=== PATIENT | female | born 1945 | race Hispanic/Latino ===

== ENCOUNTER → 2018-06-26 | Outpatient (CLI) | payer OTHER, MEDICARE ==
[~2018-06-26] MED LIST: ASPI-555 PO; FISH1CAP49 PO; SIMV40TA5 PO
== END | disposition home or self-care (01) ==
LOC: SLP 16:52
PROVIDERS: ATTEND Family Medicine
DX: E66.01 Morbid (severe) obesity due to excess calories (principal); G47.30 Sleep apnea, unspecified
CPT/HCPCS: 95810

== ENCOUNTER → 2018-07-02 | Outpatient (CLI) | payer OTHER, MEDICARE | END | disposition home or self-care (01) | LOC: SLP 20:21 | PROVIDERS: ATTEND Family Medicine | DX: G47.33 Obstructive sleep apnea (adult) (pediatric) (principal); R06.83 Snoring | CPT/HCPCS: 95811 ==

== ENCOUNTER → 2019-09-28 | Outpatient (CLI) | payer OTHER, MEDICARE ==
[~2019-09-28] MED LIST changes: +SIMV-46 PO; -SIMV40TA5 PO
== END | disposition home or self-care (01) ==
LOC: RAH 10:14
PROVIDERS: ATTEND Family Medicine
DX: Z12.31 Encounter for screening mammogram for malignant neoplasm of breast (principal)
CPT/HCPCS: 77067

== ENCOUNTER → 2020-11-04 | Outpatient (CLI) | payer OTHER, MEDICARE ==
[~2020-11-04] MED LIST changes: -ASPI-555 PO; +ASPI-556 PO
== END | disposition home or self-care (01) ==
LOC: RAH 10:00
PROVIDERS: ATTEND Family Medicine
DX: Z12.31 Encounter for screening mammogram for malignant neoplasm of breast (principal); N64.89 Other specified disorders of breast
CPT/HCPCS: 77067

== ENCOUNTER → 2022-08-02 | Outpatient (CLI) | payer OTHER, MEDICARE ==
[2022-08-02 12:51] LABS: CREATININE 1.1 mg/dL (0.5-1.5)
[2022-08-02 13:05] LABS: POTASSIUM 2.8 mmol/L (3.5-5.1)
== END | disposition home or self-care (01) ==
LOC: LAB 10:06
PROVIDERS: ATTEND Internal Medicine Cardiovascular Disease
DX: I11.9 Hypertensive heart disease without heart failure (principal); E78.5 Hyperlipidemia, unspecified
CPT/HCPCS: 36415; 80048

== ENCOUNTER → 2022-08-17 | Outpatient (CLI) | payer OTHER, MEDICARE | END | disposition home or self-care (01) | LOC: LAB 09:28 | PROVIDERS: ATTEND Internal Medicine Cardiovascular Disease | DX: E78.5 Hyperlipidemia, unspecified (principal) | CPT/HCPCS: 36415; 84132 ==

== ENCOUNTER → 2022-09-28 | Outpatient (CLI) | payer OTHER, MEDICARE ==
[2022-09-28 12:13] LABS: BASOPHILS % (AUTO) 0.4 % (0.0-5.0); EOSINOPHILS % (AUTO) 2.2 % (0.0-8.0); HEMATOCRIT 40.1 % (36-48); LYMPHOCYTES % (AUTO) 30.3 % (21.0-51.0); MEAN CORPUSCULAR HEMOGLOBIN 31.6 pg (27.0-33.0); MEAN CORPUSCULAR HGB CONC 33.2 g/dL (32.0-36.0); MEAN CORPUSCULAR VOLUME 95.2 fL (79-99); MONOCYTES % (AUTO) 5.5 % (3.0-13.0); NEUTROPHILS % (AUTO) 61.4 % (40.0-77.0); PLATELET COUNT (AUTO) 257 K/uL (130-400); RED BLOOD CELL COUNT(AUTO) 4.21 MIL/uL (4.00-5.50); WHITE BLOOD COUNT (AUTO) 8.1 K/uL (4.8-10.8)
[2022-09-28 12:44] LABS: CREATININE 0.9 mg/dL (0.5-1.5); POTASSIUM 3.7 mmol/L (3.5-5.1)
== END | disposition home or self-care (01) ==
LOC: LAB 09:46
PROVIDERS: ATTEND Internal Medicine Cardiovascular Disease
DX: E11.9 Type 2 diabetes mellitus without complications (principal); E78.5 Hyperlipidemia, unspecified
CPT/HCPCS: 36415; 80048; 85025

== ENCOUNTER → 2024-09-28 | Outpatient (CLI) | payer OTHER, MEDICARE ==
[2024-09-28 16:26] LABS: MAGNESIUM 2.2 mg/dL (1.80-2.40)
== END | disposition home or self-care (01) ==
LOC: LAB 13:50
PROVIDERS: ATTEND Internal Medicine Cardiovascular Disease
DX: I11.9 Hypertensive heart disease without heart failure (principal)
CPT/HCPCS: 36415; 80048; 83735

== ENCOUNTER 2025-05-27 14:10 | Emergency (ER) | payer OTHER, MEDICARE ==
[~2025-05-27] VITALS: Ht 149.9 cm; Wt 81.2 kg
--- NOTE | 2025-05-27 14:17 | ERN ---
General Chief Complaint: Mechanical Fall Stated Complaint: FALL Time Seen by MD: 14:13 History of Present Illness Initial Comments 80-year-old female who presents for a fall. She was using a walker had a mechanical fall and fell backwards. Denies preceding symptoms. She had the back of her head. She has pain to the back of her head and in her lower cervical spine and upper thoracic paraspinal region. She denies loss of consciousness. Denies blood thinner use. She denies any injury to her trunk abdomen chest arms or legs. She is ambulatory. She reports moderate to severe pain to the back of her head and upper thoracic and lower cervical paraspinal pain. There was no midline pain. No neurologic deficits. Allergies: Coded Allergies: No Known Drug Allergies (Unverified Allergy, Unknown, 09/05/16) Home Meds Active Scripts Meloxicam (Meloxicam) 15 Mg Tablet, 15 MG PO DAILY PRN for PAIN for 10 Days, #10 TAB Prov:SAPPHIRE CHANDLER DO 05/27/25 Reported Medications Simvastatin (Simvastatin) 40 Mg Tablet, 40 MG PO HS, TAB 09/05/16 Aspirin (Aspir 81) 81 Mg Tablet.dr, 81 MG PO DAILY, TAB 09/05/16 [place]-3 Fatty Acids/Fish Oil (Fish Oil 1,000 mg Capsule) 1 Each Capsule, 1 EACH PO TID, CAP 09/05/16 ROS Dictation CONSTITUTIONAL: No chills, no fever, no weakness, no diaphoresis, no malaise. HEAD/FACE: No signs of trauma. EENT: No eye pain, no blurred vision, no tearing, no double vision, no ear pain, no ear discharge, no nose pain, no nasal congestion, no throat pain, no throat swelling, no mouth pain. RESPIRATORY: No cough, no orthopnea, no SOB, no stridor, no wheezing. CARDIOVASCULAR: No chest pain, no edema, no palpitations, no syncope. GASTROINTESTINAL/ABDOMINAL: No abdominal pain, no constipation, no diarrhea, no nausea, no vomiting. GENITOURINARY: No abnormal discharge, no dysuria, no frequent urination, no hematuria. No complaints of pain in the genitals. MUSCULOSKELETAL: No back pain, no gout, no joint pain, no joint swelling, no muscle pain, no muscle stiffness, no neck pain. INTEGUMENTARY: No change in color, no change in hair/nails, no dryness, no lesion, no lumps, no rash. NEUROLOGICAL/PSYCH: No anxiety, not depressed, no emotional problem, no headache, no numbness, no pre-existing deficit, no history of seizures, no tremors, no weakness. HEMATOLOGIC/LYMPHATIC: Upper back lower neck and back of the head pain All Systems Negative, Except as Noted. Physical Exam Physical Exam Dictation VITAL SIGNS: Reviewed. GENERAL APPEARANCE: Alert, oriented x3, moderate distress due to pain HEAD AND FACE: Non-traumatic. EYES: PERRL, pink conjunctivas, eyelid no trauma, anterior chamber clear. EARS: Pinnas intact and no signs of trauma or erythema. Ear canals clear and no discharge. TMs no erythema. NOSE: No discharge, no bleeding. OROPHARYNX: Mouth normal, teeth no caries, tongue pink. Pharynx clear, no erythema. Tonsils no exudates, no abscesses noted. Mucous membrane moist. NECK: Supple, non-tender, no thyromegaly, no masses, no JVD, no bruits. BREAST: Deferred. CHEST: No tenderness, no crepitus, no paradoxical movement, no retractions. LUNGS: Clear, well-ventilated, symmetric, no rales, no wheezing, no rhonchi, no stridor, good breath sounds bilaterally. HEART: Regular rate, regular rhythm, no murmur, no gallops. VASCULAR: No peripheral edema. ABDOMEN: Soft, positive bowel sounds, nondistended, no guarding, nontender, no rebound, no masses no hepatomegaly, no splenomegaly, no Kee's sign, no hernias. RECTAL: Deferred. GENITAL: Deferred. NEUROLOGICAL: Normal speech, gross motor function intact, gross sensory function intact. MUSCULOSKELETAL: Neck nontender, full range of motion, back nontender, full range of motion. EXTREMITIES: Nontender, full range of motion. SKIN: Color pink, dry, no turgor, no rash, no lacerations, no abrasions, no contusions. LYMPHATICS: Deferred. MDM CC: Mechanical fall Historian: Patient Comorbidities: Advanced age and obesity, hypertension Limitations by social determinants of health: None Differential diagnosis: Minor head trauma, major head trauma, cervical spine fracture, thoracic spine fracture, other. Vital signs are stable You medical exam shows small hematoma to the back of the head bleeding controlled otherwise unremarkable GCS 15, cranial nerves are intact, no neurologic deficits CT head, cervical spine, thoracic spine are all unremarkable for acute injury. Patient received pain control in the ER. We will DC with conservative management. ED Course Orders Procedure Category Date Status Time Ct Head/Brain W/O CT 05/27/25 Resulted Contrast 14:13 Ct Cervical Spine W/O CT 05/27/25 Resulted Contrast 14:13 Ct Thoracic Spine W/O CT 05/27/25 Resulted Contrast 14:13 Chest 1vw RAD 05/27/25 Resulted 14:13 Ketorolac PHA 05/27/25 Complete Tromethamine 15mg/Ml 14:30 Hydrocodone/Apap PHA 05/27/25 Complete 5/325 ([place] 5/325mg) 14:30 Current Medications Medications (Trade) Dose Ordered Sig/Aleida Route PRN Reason Start Time Stop Time Status Last Admin Dose Admin Acetaminophen/ Hydrocodone Bitart (NORco 5/325MG) 1 tab ONCE ONCE PO 05/27/25 14:30 05/27/25 14:51 DC 05/27/25 14:52 Ketorolac Tromethamine (toRADol) 15 mg ONCE ONCE IM 05/27/25 14:30 05/27/25 14:51 DC 05/27/25 14:52 Vital Signs Date Time Temp Pulse Resp B/P (MAP) Pulse Ox O2 Delivery O2 Flow Rate FiO2 05/27/25 15:53 97.9 88 16 127/72 97 Room Air* 0 21 05/27/25 14:32 97.9 91 16 131/77 97 Room Air* 0 21 05/27/25 14:12 97.9 91 16 131/77 97 Room Air DX & DISP Disposition: Discharge Departure Impression: Primary Impression: Fall Additional Impressions: Cervicalgia, Minor head injury Condition: Stable Scripts Meloxicam (Meloxicam) 15 Mg Tablet 15 MG PO DAILY PRN for PAIN for 10 Days, #10 TAB Prov: SAPPHIRE CHANDLER DO 05/27/25 Additional Instructions: There are no major injuries on your workup here today. The CT scan of your head does show a hematoma (bruising) to the back of your head. This will heal on its own. Apply ice frequently. The CT scan of your cervical and thoracic spine showed degenerative changes consistent with the age, but no acute abnormalities. I have prescribed meloxicam, which is a nonsteroidal anti-inflammatory pain medication. You can take this once per day for the next week or so as needed. You can also apply ice to the affected area. This will reduce inflammation and swelling. You can take [id number] Tylenol (1000 mg) up to 4 times a day as needed for pain. Please return to the emergency department if you have any concerns. Referrals: HARLEY SMITH MD (PCP) SAPPHIRE CHANDLER DO May 27, 2025 14:17
[2025-05-27] MEDS: HYDROcodone/APAP 5/325 1 TAB TABLET PO ONE (14:52)
--- NOTE | 2025-05-27 15:12 | HMCIMG ---
CHEST 1VW REASON: fall, upper back pain COMPARISON: None. FINDINGS: Single view of the chest was obtained. Lungs are clear. Heart size is normal. There is no pulmonary vascular congestion. Mediastinum and bony thorax appear unremarkable. IMPRESSION: 1. No acute cardiopulmonary process.
--- NOTE | 2025-05-27 15:22 | HMCIMG ---
Exam: NONCONTRAST CT BRAIN REASON: fall, head injury. COMPARISON: None. TECHNIQUE: Images are obtained from vertex to the skull base. The exam was performed without IV contrast. FINDINGS: There is normal appearing brain parenchyma. There are no focal mass lesions. There is is no evidence of intracranial hemorrhage or acute stroke. Ventricles and sulci appear normal. Posterior fossa and brainstem structures are unremarkable. There is a mild scalp hematoma near the vertex. Paranasal sinuses and remaining extracranial soft tissues appear normal as well.Bilateral hyperostosis frontalis interna. There is mild global atrophy. IMPRESSION: 1. No acute intracranial process.. 2. Mild global atrophy consistent with patient's chronological age. 2. Mild scalp hematoma at the vertex of the skull. CT was performed with one or more following dose reduction techniques: automated exposure control, adjustment of the mA and kv according to patient's size, or use of a iterative reconstruction technique.
--- NOTE | 2025-05-27 15:25 | HMCIMG ---
CT CERVICAL SPINE W/O CONTRAST REASON: fall, head injury COMPARISON: None TECHNIQUE: Images are obtained from skull base to the upper thoracic spine in the axial plane. Sagittal and coronal reconstruction images were then performed. FINDINGS: There are normal appearing vertebral bodies. Alignment is unremarkable. There is mild multilevel disc disease seen throughout the cervical spine with most pronounced at C4-C5, C5-C6 followed by C6-C7.. There is no evidence of fracture or subluxation. Soft tissues appear normal as well. 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 CT was performed with one or more following dose reduction techniques: automated exposure control, adjustment of the mA and kv according to patient's size, or use of a iterative reconstruction technique.
--- NOTE | 2025-05-27 15:34 | HMCIMG ---
CT THORACIC SPINE W/O CONTRAST HISTORY: fall, head injury COMPARISON: None TECHNIQUE: Sequential axial images of thoracic spine without contrast and with sagittal and coronal reconstructions FINDINGS: There is normal alignment of thoracic vertebrae. No vertebral body height loss or fractures noted. Disc space height is preserved throughout. There is osteoarthritic changes with osteophytes. The central canal and neural foramen appear patent. Prevertebral soft tissues are unremarkable. IMPRESSION: No acute abnormality present. Osteoarthritic changes with marginal spurs.
[2025-05-27] MEDS ORDERED: MELO-108 PO (15:40)
[2025-05-27 15:53] VITALS: BP 127/72; PULSE 88; RESP 16; TEMP 97.9; O2SAT 97
== END 2025-05-27 16:13 | disposition home or self-care (01) ==
LOC: EDH 14:10
DX: S00.03XA Contusion of scalp, initial encounter (principal); M54.2 Cervicalgia; E66.9 Obesity, unspecified; I10 Essential (primary) hypertension; M19.90 Unspecified osteoarthritis, unspecified site; Z79.82 Long term (current) use of aspirin; W18.39XA Other fall on same level, initial encounter; Y93.89 Activity, other specified; Y92.89 Other specified places as the place of occurrence of the external cause; Y99.8 Other external cause status
CPT/HCPCS: 99285; 70450; 71045; 72125; 72128; 96372; J1885